=== PATIENT | male | born 1955 | race Caucasian/White ===

== ENCOUNTER → 2017-09-26 13:28 | Outpatient (CLI) | payer OTHER, SELFPAY ==
--- NOTE | 2017-09-26 13:29 | RAD_ITS ---
STUDY: X-RAY - RIGHT SHOULDER REASON FOR EXAM: Male, 62 years old. Right-sided shoulder pain. TECHNIQUE: 3 view(s) of the shoulder. COMPARISON: Prior comparable comparison studies are not available for review at this time. FINDINGS: There is mild degenerative arthrosis of the glenohumeral articulation. Normal acromioclavicular joint. Normal acromion. There is no demonstrated inferior acromial spur. There is demineralization of the humerus and visualized osseous structures. The soft tissue structures are unremarkable. The visualized right lung has mild interstitial thickening. RAD/Shoulder min 2 Views IMPRESSION: Degenerative arthropathy of the right shoulder. Electronically Signed: Sonja Thomson MD at 13:07 EDT , Service support ,
--- NOTE | 2017-09-26 13:29 | RAD_ITS ---
STUDY: X-RAY - CERVICAL SPINE REASON FOR EXAM: Male, 62 years old. Neck pain TECHNIQUE: 6 view(s) of the cervical spine were obtained. COMPARISON: None FINDINGS: Normal anterior atlantoaxial articulation. Normal odontoid process. There is straightening of the normal cervical lordosis. Sclerosed endplates and disc space narrowing C6-7, less C5-6 mild facet sclerosis. There is mild neural foraminal narrowing bilateral C6-7. Otherwise normal vertebral bodies and endplates. Normal disc space heights. Normal visualized intervertebral neuroforamina. The soft tissue structures are unremarkable. RAD/Cerv Spine 4 or 5 Views IMPRESSION: Focal degenerative changes C6-7 with bilateral mild neural foraminal narrowing. There is straightening of the normal lordotic curve, a nonspecific finding, which may be due to positioning or which might be due to muscle spasm. Electronically Signed: Sana Archer MD at 7:57 EDT , Service support ,
== END ==
PROVIDERS: Family Provider Internal Medicine; PCP Internal Medicine; Visit Provider Orthopaedic Surgery
DX: M25.511 Pain in right shoulder (principal); M54.2 Cervicalgia
CPT/HCPCS: 72050; 73030

== ENCOUNTER 2020-08-17 08:16 | Outpatient (RCR) | payer OTHER, SELFPAY ==
[2020-08-17] MEDS: COVID-19 VACC, MRNA(PFIZER)/PF 30 MCG/0.3 ML SYRINGE IM (18:39)
[2020-09-07] MEDS: COVID-19 VACC, MRNA(PFIZER)/PF 30 MCG/0.3 ML SYRINGE IM (17:11)
== END 2020-11-14 23:59 ==
LOC: IMMUN 08:16
PROVIDERS: PCP Family Medicine; Referring Provider Family Medicine; Visit Provider Family Medicine
DX: Z23 Encounter for immunization (principal)
CPT/HCPCS: 0001A; 0002A; 91300

== ENCOUNTER 2023-06-26 07:43 | Inpatient (IN) | payer MEDICARE, SELFPAY ==
[2023-06-26] VITALS (12 sets, daily range): BP systolic 92–127; BP diastolic 58–79; PULSE 101–134; RESP 14–20; TEMP 36.3–39.3; O2SAT 88–98; BMI 30.1; BMI 29.0
[2023-06-26] MEDS: 0.9% Normal Saline (1000mL) 1,000 ML 1000 ML IV (08:37)
[2023-06-26 08:38] LABS: Mucous, Urine 0 SEEN /hpf (<or=2+); Squamous Epithelial Cells - UA 0 SEEN /hpf (0-5)
[2023-06-26] MEDS: Acetaminophen 325 MG Tablet 650 MG PO ×2 (08:38→18:05)
[2023-06-26 08:43] LABS: Glucose, Dipstick Normal (Normal); Ketone-Dipstick 15 mg/dl (Negative); Leukocyte Esterase-Dipstick 500 /ul (Negative); Nitrite-Dipstick Negative (Negative); Occult Blood-Urine 250 /ul (Negative); Protein-Dipstick 30 mg/dl (Negative); Specific Gravity, Urine 1.015 (1.002-1.030); Urine Bilirubin Dipstick Negative (Negative); Urine Urobilinogen Normal (Normal)
[2023-06-26 08:50] LABS: Color, Urine Yellow (Yellow); Urine Clarity Clear (Clear)
[2023-06-26 08:51] LABS: Absolute Lymphocyte Count 2.09 X10^3/uL (0.83-4.51); Absolute Neutrophil Count 24.7 X10^3/uL (2.0-7.7); Basophil# 0.18 X10^3/uL; Basophil% 0.6 % (0-1); Eosinophil# 0.04 X10^3/uL; Eosinophils% 0.1 % (0-5); Hematocrit 44.4 % (40-54); Hemoglobin 14.7 g/dL (13.0-16.5); Lymphocyte # 2.09 X10^3/ul (0.83-4.51); Lymphocyte % 6.7 % (19-41); Mean Corp Hgb Conc 33.1 g/dL (32-36); Mean Corpuscular Hgb 31.9 pg (27.0-32.0); Mean Corpuscular Volume 96.3 fL (80-94); Mean Platelet Vol. 9.2 fl (6.2-12.0); Monocyte# 3.75 X10^3/uL; NRBC Flagged by Analyzer 0 % (0-5); Neutrophil % 79.4 % (47-70); POSITIVE COUNT YES; POSITIVE DIFFERENTIAL YES; Platelet Count 363 K/mm3 (150-450); RBC Distribution Width SD 46.2 fl (35.1-43.9); Red Blood Count 4.61 M/mm3 (4.6-6.2)
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
--- NOTE | 2023-06-26 09:00 | RAD_ITS ---
STUDY: X-RAY - ACUTE ABDOMINAL SERIES REASON FOR EXAM: Male, 67 years old. Fever. Left ureteral stent. TECHNIQUE: Single view of the chest. Supine, and erect view(s) of the abdomen were obtained on 6 images. COMPARISON: None. FINDINGS: The lungs are clear and expanded. Normal size heart. Normal mediastinum and latrice. Normal visualized pulmonary arteries. Normal visualized aortic arch and descending thoracic aorta. Normal bowel gas pattern with air seen to the rectum. Left ureteral stent in anatomic alignment. Clips projected over the left upper quadrant of the abdomen. 5 mm in diameter calcification projected over the lower pole of the right kidney which may represent nephrocalcinosis. Normal visualized osseous structures. RAD/Acute Abdomen Inc Chest IMPRESSION: Left ureteral stent and right nephrocalcinosis. No acute abnormality. Electronically Signed: Kevan Mccormick MD at 9:30 EST ,
--- NOTE | 2023-06-26 09:05 | EDS_ITS ---
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 Patient notes that he had a stent in his left ureter placed 3 weeks ago at [facility] in [facility]. He had a 5.5 mm proximal stone that was obstructing for the patient. He notes about a week later (2 weeks ago) he was at [facility] emergency room and [facility] where he had a fever. They told him he had a raging UTI in the ER and admitted him. He notes his urine culture came back clear. He is been on antibiotics for 2 weeks does not recall the name of them. His fever came back yesterday around 3 PM. Is been as high as 102. Has been taking Advil every 4 hours as last dose was at 6 AM. He took 200 mg. Not had any Tylenol. Notes that he lives in [place] and is scheduled to have his ureteral stent removed in 5 days (07/02) with Dr. Downs at [facility]. Patient does not have his records available from the [place] visits. He does not know what antibiotic he had been on. Is not currently on an antibiotic. [facility] Medical History Back problem Carpal tunnel syndrome h/o thyroid cancer High cholesterol Postoperative primary hypothyroidism Thyroid cancer Home Medications levothyroxine 137 mcg tablet 137 mcg PO DAILY 11/26/16 [History Last Taken 11/28/16 07:00] red yeast rice 600 mg capsule 1,200 mg PO DAILY 11/26/16 [History Last Taken Unknown] levothyroxine 150 mcg tablet 150 mcg PO DAILY 01/30/21 [History Last Taken Unknown] pantoprazole 40 mg tablet,delayed release tablet PO 01/30/21 [History Last Taken Unknown] Allergy/AdvReac Type Severity Reaction Status Date / Time acetaminophen [From Vicodin] AdvReac Nausea/Vom/ Verified 06/26/23 07:45 Diarrhea hydrocodone [From Vicodin] AdvReac Nausea/Vom/ Verified 06/26/23 07:45 Diarrhea Family History Other Bleeding disorder Colon cancer Surgical History h/o carpal tunnel release H/O hernia repair H/O splenectomy H/O thyroidectomy Social History Smoking Status: Never smoker alcohol intake: current alcohol intake frequency: 0-2 drinks per day substance use type: does not use what type of physical activity do you participate in: additional details: cardio EXAM Physical Exam Const Vital Signs: 06/26/23 07:44 06/26/23 08:42 Temperature 97.3 F L 98.6 F Temperature Source Temporal Temporal Pulse Rate 134 H Respiratory Rate 16 Blood Pressure 127/79 H Blood Pressure Mean 95 Pulse Ox 97 Oxygen Delivery Method Room Air [facility] Lab Data Labs: Laboratory Results - last 24 hr 06/26/23 08:30 Urine Color Yellow Urine Clarity Clear Urine pH 6.0 Ur Specific [place] 1.015 Urine Protein 30 H Urine Glucose (UA) Normal Urine Ketones 15 H Urine Occult Blood 250 H Urine Nitrite Negative Urine Bilirubin Negative Urine Urobilinogen Normal Ur Leukocyte Esterase 500 H Discharge Plan Triage Chief Complaint: Fever ED Provider: Marylou Love Dx/Rx/DC Orders Prescriptions: No Action levothyroxine 150 mcg tablet 150 mcg PO DAILY pantoprazole 40 mg tablet,delayed release (DR/EC) PO levothyroxine 137 MCG tablet 137 mcg PO DAILY red yeast rice 600 MG capsule 1,200 mg PO DAILY Primary Care Provider: Lloyd Jameson Referrals: Lloyd Jameson MD [Primary Care Provider] - Capacity Legal Hoist Operator Reflex Medical hold order details:: IF a medical hold is selected below, a suggested order for a MEDICAL HOLD will reflex upon signing the document. Next of kin: [place] law dictates a PRIORITY LIST for identifying legal decision-maker/legal next of kin in the following order (LNOK): 1st: The patient?s legal guardian, if any 2nd: The patient's spouse (if status is questionable, consult Risk Management) 3rd: The patient?s adult child(barbi) (majority, if multiple children) 4th: The patient?s parents 5th: The patient?s adult siblings (majority, if multiple children siblings)
--- NOTE | 2023-06-26 09:05 | EX.ED.DYSGE1 ---
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 Patient notes that he had a stent in his left ureter placed 3 weeks ago at [facility] in [facility]. He had a 5.5 mm proximal stone that was obstructing for the patient. He notes about a week later (2 weeks ago) he was at [facility] emergency room and [facility] where he had a fever. They told him he had a raging UTI in the ER and admitted him. He notes his urine culture came back clear. He is been on antibiotics for 2 weeks does not recall the name of them. His fever came back yesterday around 3 PM. Is been as high as 102. Has been taking Advil every 4 hours as last dose was at 6 AM. He took 200 mg. Not had any Tylenol. Notes that he lives in [place] and is scheduled to have his ureteral stent removed in 5 days (07/02) with Dr. Downs at [facility]. Patient does not have his records available from the [place] visits. He does not know what antibiotic he had been on. Is not currently on an antibiotic. [facility] Medical History Back problem Carpal tunnel syndrome h/o thyroid cancer High cholesterol Kidney stones Postoperative primary hypothyroidism Thyroid cancer Home Medications levothyroxine 175 mcg tablet (Synthroid) 175 mcg PO DAILY THYROID 06/26/23 [History Last Taken 06/25/23] Allergy/AdvReac Type Severity Reaction Status Date / Time acetaminophen [From Vicodin] AdvReac Nausea/Vom/ Verified 06/26/23 07:45 Diarrhea hydrocodone [From Vicodin] AdvReac Nausea/Vom/ Verified 06/26/23 07:45 Diarrhea Family History Other Bleeding disorder Colon cancer Surgical History h/o carpal tunnel release H/O hernia repair H/O splenectomy H/O thyroidectomy Social History Smoking Status: Never smoker alcohol intake: current alcohol intake frequency: 0-2 drinks per day substance use type: does not use what type of physical activity do you participate in: additional details: cardio ROS ROS ED Constitutional Constitutional ED: Reports chills and fever(s) Eyes Eyes: Denies change in vision Cardiovascular Cardiovascular: Denies chest pain Respiratory/Chest Respiratory/Chest: Denies cough Gastrointestinal Gastrointestinal: Denies abdominal pain, nausea or vomiting Genitourinary Genitourinary ED: Denies dysuria, hematuria or urinary frequency Musculoskeletal Musculoskeletal: Denies back pain or myalgias Integumentary Denies rash Neurologic Neurologic: Denies headache(s) Hematologic/Lymphatic Hematologic/Lymphatic: Denies easy bleeding or easy bruising EXAM Physical Exam Const Vital Signs: 06/26/23 07:44 06/26/23 08:42 06/26/23 09:27 Temperature 97.3 F L 98.6 F 99.2 F H Temperature Source Temporal Temporal Oral Pulse Rate 134 H 115 H Respiratory Rate 16 20 H Blood Pressure 127/79 H 106/69 Blood Pressure Mean 95 81 Pulse Ox 97 93 Oxygen Delivery Method Room Air Room Air 06/26/23 09:28 Temperature 99.2 F H Temperature Source Oral Pulse Rate 115 H Respiratory Rate 20 H Blood Pressure 106/69 Blood Pressure Mean 81 Pulse Ox 95 Oxygen Delivery Method Room Air Positive well nourished and well developed General Appearance ED: well developed and NAD HEENT Reports moist mucous membranes Eyes PERRL General Eye ED: Negative for scleral icterus Neck supple Chest Wall inspection of chest normal and palpation of chest normal Resp normal respiratory effort and clear to auscultation bilaterally Cardio no murmurs Rate: tachycardic GI normal to inspection, nondistended, normoactive bowel sounds and non-tender Extremity normal to inspection Neuro oriented x3 Sensorium / Orientation: alert Motor Exam: Negative for general weakness Psych mental status grossly normal Skin no rashes or lesions noted and no wounds MDM MDM MDM Narrative Medical decision making narrative: Patient is evaluated for fever. Started yesterday. Has significant recent past medical history of kidney stone that required stent. This was all [place] out of state. He had a hospitalization about 2 weeks ago for fever thought to be secondary to infected stent/pyelonephritis however he states his urine culture was negative at that time. He has no other symptoms otherwise quite well-appearing. Today his white count is significantly elevated at 31.1 (his CBC in December of last year (6 months ago) was normal). Kidney function does appear to be at his baseline creatinine 1.36 where his baseline is 1.1-1.2. Is given IV fluids and Tylenol in the ER with improvement of his tachycardia. Otherwise remains hemodynamically stable. Urinalysis is consistent with infection with 500 leukocyte esterase, 10-25 white blood cells 1+ bacteria with no squamous cells. Initially KUB is obtained which shows left stent and calcifications in the right kidney. Is reviewed by myself as well as radiology. Single chest view on this is normal with no acute infiltrate noted. Case discussed with urology on-call, Dr. Crouch, states the patient likely needs IV antibiotics and he would not take the stent out right now given acute infection but does recommend admission to medicine. Case discussed admitting physician, Dr. Mcfarland, who admit the patient to his service. Patient started on IV Zosyn as patient was contacted on the emergency room by his urologist who states that his urine culture was positive for Enterococcus faecalis (he saw his urologist 2 days ago). Will try to obtain urine culture results however I do not see this on [facility]. Patient agreeable to plan of care. CT of the flank is ordered per request of urology and this is read as prominent left kidney with mild perinephric standing which can be seen in pyelonephritis with no other acute process. Stent appears to be appropriately placed. Lactate was normal so patient does not have markers for severe sepsis or endorgan damage at this time. Blood cultures are pending as well as urine culture at this time. History & Record Review Additional record(s) reviewed:: Prior outpatient record ([facility]- urology visit ) Lab Data Attestation: I reviewed the patient's lab results. Labs: Laboratory Results - last 24 hr 06/26/23 06/26/23 08:25 08:30 WBC 31.1 H* RBC 4.61 Hgb 14.7 Hct 44.4 MCV 96.3 H MCH 31.9 MCHC 33.1 RDW Std Deviation 46.2 H RDW Coeff of Lam 13.0 Plt Count 363 MPV 9.2 Immature Gran % (Auto) 1.200 H Neut % (Auto) 79.4 H Lymph % (Auto) 6.7 L [place] % (Auto) 12.0 H Eos % (Auto) 0.1 Baso % (Auto) 0.6 Absolute Neuts (auto) 24.7 H Absolute Lymphs (auto) 2.09 Nucleated RBC % 0 Differential Comment SCANNED Diff Path Review October Sodium 135 L Potassium 3.9 Chloride 102 Carbon Dioxide 27.0 Anion Gap 6 BUN 19 H Creatinine 1.38 H Estim Creat Clear Calc 58.10 Est GFR (MDRD) Af Amer 66 Est GFR (MDRD) Non-Af 55 L BUN/Creatinine Ratio 13.8 Glucose 112 H Lactic Acid 1.5 Calcium 9.8 Total Bilirubin 1.10 H AST 14 L ALT 24 Alkaline Phosphatase 90 Total Protein 8.3 H Albumin 3.6 Globulin 4.7 H Albumin/Globulin Ratio 0.8 L Procalcitonin 0.40 H Urine Color Yellow Urine Clarity Clear Urine pH 6.0 Ur Specific [place] 1.015 Urine Protein 30 H Urine Glucose (UA) Normal Urine Ketones 15 H Urine Occult Blood 250 H Urine Nitrite Negative Urine Bilirubin Negative Urine Urobilinogen Normal Ur Leukocyte Esterase 500 H Urine RBC 5-10 SEEN Urine WBC 10-25 SEEN Ur Squamous Epith Cells 0 SEEN Urine Bacteria 1+ Urine Mucus 0 SEEN Radiography Diagnostic Testing: Clinical Impression(s) from Imaging Studies Acute Abdomen Series 06/26/23 09:00 IMPRESSION: Left ureteral stent and right nephrocalcinosis. No acute abnormality. Electronically Signed: Kevan Mccormick MD at 9:30 EST , Abdomen/Pelvis CT 06/26/23 09:48 IMPRESSION: 1. Left double-J stent catheter in place. 2. Prominent left kidney with mild perinephric stranding which can be seen in pyelonephritis. 3. Small nonobstructing stone in the right kidney. 4. Status post splenectomy. 5. Otherwise no focal acute inflammatory process. 6. Prominent prostate. 7. Very small bilateral inguinal hernias containing fat. Electronically Signed: Gamal Vicente MD at 10:27 EST , Management Discussion w/another healthcare provider: Hospitalist and Sales And Service Engineer Discharge Plan Dx/Rx/DC Orders Clinical Impression: Status post placement of ureteral stent, Pyelonephritis of left kidney, Leukocytosis Disposition Disposition: [facility] Discharge Date/Time: 06/26/23 10:35 Capacity Legal Amortization Schedule Clerk Reflex Medical hold order details:: IF a medical hold is selected below, a suggested order for a MEDICAL HOLD will reflex upon signing the document. Next of kin: [place] law dictates a PRIORITY LIST for identifying legal decision-maker/legal next of kin in the following order (LNOK): 1st: The patient?s legal guardian, if any 2nd: The patient's spouse (if status is questionable, consult Risk Management) 3rd: The patient?s adult child(barbi) (majority, if multiple children) 4th: The patient?s parents 5th: The patient?s adult siblings (majority, if multiple children siblings)
[2023-06-26 09:07] LABS: ALB/GLOB Ratio 0.8 RATIO (0.9-2.4); AST(SGOT) 14 U/L (15-37); Alanine Aminotransfer ALT/SGPT 24 U/L (16-61); Albumin, Serum 3.6 g/dL (3.2-5.0); Alkaline Phosphatase 90 U/L (45-117); Anion Gap 6 (5-15); BUN 19 mg/dL (7-18); BUN/Creat Ratio 13.8 RATIO (10-20); Calcium,Total 9.8 mg/dL (8.5-10.1); Chloride 102 mmol/L (98-107); Creatinine, Serum 1.38 mg/dL (0.70-1.30); EST Glomerular Filtration Rate 55 mL/min (>60); Est Glom Filt Rate - Afr Amer 66 mL/min (>60); Globulin 4.7 g/dL (2.2-4.2); Glucose 112 mg/dL (74-106); Potassium 3.9 mmol/L (3.5-5.1); Protein, Total 8.3 g/dL (6.4-8.2); Sodium Level 135 mmol/L (136-145)
[2023-06-26 09:11] LABS: Lactic Acid 1.5 mmol/L (0.4-1.9)
[2023-06-26 09:12] LABS: Differential Indicated SCAN CRITERIA MET; White Blood Count 31.1 K/mm3 (4.4-11.0)
[2023-06-26 09:13] LABS: Differential Comment SCANNED
[2023-06-26 09:28] LABS: Bacteria 1+ /hpf (None Seen); Red Blood Cells-Urine 5-10 SEEN /hpf (0-5); White Blood Cells 10-25 SEEN /hpf (0-5)
--- NOTE | 2023-06-26 09:48 | CT_ITS ---
INDICATION: fever, left stent- ureter EXAMINATION: CT ABDOMEN AND PELVIS WITHOUT CONTRAST - CT Abdomen And Pelvis W/O Contrast Injection TECHNIQUE: Helically acquired images were obtained of the abdomen and pelvis without oral or IV contrast. A radiation dose optimization technique was used for this scan. IV Contrast dosage and agent: None. Oral contrast: None. RADIATION DOSAGE (If Supplied By Facility): CTDIvol = ( 10.01 ) mGy, DLP = ( 524.96 ) mGycm COMPARISON: No relevant prior comparison study available FINDINGS: LOWER CHEST: Lung bases are clear. No cardiomegaly or pericardial effusion. LIVER: Homogeneous. No focal mass. GALLBLADDER AND BILIARY TREE: No calcified gallstones. No gallbladder distension or wall edema. No intra- or extrahepatic biliary ductal dilation. PANCREAS: No focal cystic or solid mass. SPLEEN: Surgically removed. ADRENAL GLANDS: No nodules. KIDNEYS AND URETERS: 4 mm nonobstructing stone in the lower pole of the right kidney. No evidence of right hydronephrosis. Left sided double-J stent catheter with the proximal tip in the upper pole calyx of the left kidney and the distal tip extends to the bladder close to the ureterovesical junction. No definite ureteral stone. Mild prominence of the left kidney with perinephric stranding without definite hydronephrosis. Can be seen in pyelonephritis. There are 2 left renal veins with one of the veins passing behind aorta and inferior vena cava. PERITONEUM: No ascites or free air. No other fluid collection. BOWEL: No evidence of acute appendicitis. No stomach or bowel distension. No focal inflammatory change. LYMPH NODES: No enlarged mesenteric or retroperitoneal lymph nodes. VESSELS: Aorta is non-dilated. URINARY BLADDER: Unremarkable. REPRODUCTIVE ORGANS: Slightly prominent prostate. ABDOMINAL WALL: Tiny bilateral inguinal hernia containing fat . BONES: No lytic or blastic abnormality. CT/Abdomen/Pelvis without Cont IMPRESSION: 1. Left double-J stent catheter in place. 2. Prominent left kidney with mild perinephric stranding which can be seen in pyelonephritis. 3. Small nonobstructing stone in the right kidney. 4. Status post splenectomy. 5. Otherwise no focal acute inflammatory process. 6. Prominent prostate. 7. Very small bilateral inguinal hernias containing fat. Electronically Signed: Gamal Vicente MD at 10:27 EST ,
[2023-06-26] MEDS: Piperacil/Tazobactam 4.5 GM in 0.9% Normal Saline (100mL MB+) 100 ML IV (11:03)
[2023-06-26] MEDS: 0.9% Normal Saline (1000mL) 1,000 ML 150 ML IV ×2 (11:42→18:10)
[2023-06-26] MEDS: Ibuprofen 400 MG Tablet PO ×2 (12:57→21:39)
[2023-06-26] MEDS: Ondansetron 4 MG/2 ML Vial IV (13:00)
[2023-06-26] MEDS: Piperacil/Tazobactam 3.375 GM in 0.9% Normal Saline (50mL MB+) 50 ML IV ×2 (14:58→21:40)
[2023-06-26] MEDS: 0.9% Normal Saline (250mL Bag) 250 ML 15 ML IV (14:58)
--- NOTE | 2023-06-26 17:33 | PCM.HP.STD ---
HPI - General General Date of Admission: 06/26/23 Date of Service: 06/26/23 Chief Complaint: Fever, chills HPI Narrative JAYLENE VEE, is a 67 M who presents to the emergency room with a suspected urinary tract infection, he had been treated in the hospital in [facility] 3 times over the past several weeks for left flank pain, initially he was told that he had a ureteral stone but that it was small enough to pass, he then went to another hospital a few days later because he had continued pain, he was told that he needed a stent placed in the left ureter, approximately a week after this, he was hospitalized at another [place] hospital for a UTI and was placed on outpatient antibiotics. Patient has a appointment to follow-up with urology at the [facility] on Friday to have his left ureteral stone undergo laser lithotripsy. Last night he had the onset of chills and fever at home-he says his fever was up to 102, workup in the emergency room today showed a highly elevated white blood cell count at 31.1, chemistry panel showed a creatinine of 1.38 and a BUN of 19, patient's urinalysis showed 500 leukocyte Estrace, 10-25 WBCs, 5-10 RBCs, and +1 bacteria. Patient had a recent outpatient urine culture which grew out Enterococcus. Patient will be admitted to [place] [address] for acute pyelonephritis, he will be placed on IV Zosyn and receive IV fluids, I talked to the patient about seeing urology here but the patient would rather follow-up with [facility] urology on Friday. Patient does not meet criteria for sepsis at this time. [facility] Medical History Back problem Carpal tunnel syndrome h/o thyroid cancer High cholesterol Kidney stones Postoperative primary hypothyroidism Thyroid cancer Home Medications levothyroxine 175 mcg tablet (Synthroid) 175 mcg PO DAILY THYROID 06/26/23 [History Last Taken 06/25/23] Allergy/AdvReac Type Severity Reaction Status Date / Time acetaminophen [From Vicodin] AdvReac Nausea/Vom/ Verified 06/26/23 07:45 Diarrhea hydrocodone [From Vicodin] AdvReac Nausea/Vom/ Verified 06/26/23 07:45 Diarrhea Family History Other Bleeding disorder Colon cancer Surgical History h/o carpal tunnel release H/O hernia repair H/O splenectomy H/O thyroidectomy Social History Smoking Status: Never smoker alcohol intake: current alcohol intake frequency: 0-2 drinks per day substance use type: does not use what type of physical activity do you participate in: additional details: cardio ROS Constitutional Constitutional: Reports chills and fever(s); Denies anorexia, change in weight, night sweats or weakness Eyes Eyes: Denies blurry vision, change in vision, discharge from eye(s) or eye pain Cardiovascular Cardiovascular: Denies chest pain, claudication, dyspnea on exertion, edema or palpitations Respiratory/Chest Respiratory/Chest: Denies cough, dyspnea, hemoptysis, productive cough, shortness of breath at rest or shortness of breath with exertion Gastrointestinal Gastrointestinal: Denies abdominal pain, constipation, diarrhea, hematemesis, hematochezia, melena, nausea or vomiting Genitourinary Genitourinary: Denies dysuria, hematuria, urinary frequency, urinary hesitancy, urinary incontinence or urinary urgency Musculoskeletal Musculoskeletal: Denies back pain, joint pain, joint stiffness, joint swelling, myalgias or neck pain Neurologic Neurologic: Denies abnormal gait, abnormal speech, dizziness, focal weakness, headache(s), loss of vision, numbness, other visual disturbances, paresthesias, syncope or tingling Psychiatric Psychiatric: Denies anxiety, cognitive impairment, depression, irritability, mood swings or suicidal ideation Endocrine Endocrinology: Denies change in body appearance, cold intolerance, excessive sweating, heat intolerance, polydipsia or polyuria Hematologic/Lymphatic Hematologic/Lymphatic: Denies none, anemia, easy bleeding, easy bruising or lymphadenopathy Allergic/Immunologic Allergic/Immunologic: Denies rhinitis, urticaria, eczemia or asthma Vital Signs Vital Signs Vital Signs: 06/26/23 07:44 06/26/23 08:42 06/26/23 09:27 Temperature 97.3 F L 98.6 F 99.2 F H Temperature Source Temporal Temporal Oral Pulse Rate 134 H 115 H Respiratory Rate 16 20 H Blood Pressure 127/79 H 106/69 Blood Pressure Mean 95 81 Blood Pressure Source Blood Pressure Position Blood Pressure Location Pulse Ox 97 93 Oxygen Delivery Method Room Air Room Air 06/26/23 09:28 06/26/23 10:23 06/26/23 10:46 Temperature 99.2 F H 99 F 98.4 F Temperature Source Oral Temporal Pulse Rate 115 H 106 H 106 H Respiratory Rate 20 H 14 18 Blood Pressure 106/69 110/61 120/76 Blood Pressure Mean 81 77 90 Blood Pressure Source Monitor Blood Pressure Position Semi-Fowlers Blood Pressure Location Right Arm Pulse Ox 95 96 95 Oxygen Delivery Method Room Air Room Air 06/26/23 12:43 Temperature 101.3 F H Temperature Source Oral Pulse Rate Respiratory Rate Blood Pressure Blood Pressure Mean Blood Pressure Source Blood Pressure Position Blood Pressure Location Pulse Ox Oxygen Delivery Method Weight Weight: 86.545 kg Body Mass Index (BMI) 29.0 Results Lab / Micro Data 06/26/23 08:25 06/26/23 08:25 Labs: Laboratory Results - last 24 hr 06/26/23 08:25: WBC 31.1 H*, RBC 4.61, Hgb 14.7, Hct 44.4, MCV 96.3 H, MCH 31.9, MCHC 33.1, RDW Std Deviation 46.2 H, RDW Coeff of Lam 13.0, Plt Count 363, MPV 9.2, Immature Gran % (Auto) 1.200 H, Neut % (Auto) 79.4 H, Lymph % (Auto) 6.7 L, [place] % (Auto) 12.0 H, Eos % (Auto) 0.1, Baso % (Auto) 0.6, Absolute Neuts (auto) 24.7 H, Absolute Lymphs (auto) 2.09, Nucleated RBC % 0, Differential Comment SCANNED, Diff Path Review October, Sodium 135 L, Potassium 3.9, Chloride 102, Carbon Dioxide 27.0, Anion Gap 6, BUN 19 H, Creatinine 1.38 H, Estim Creat Clear Calc 58.10, Est GFR (MDRD) Af Amer 66, Est GFR (MDRD) Non-Af 55 L, BUN/Creatinine Ratio 13.8, Glucose 112 H, Lactic Acid 1.5, Calcium 9.8, Total Bilirubin 1.10 H, AST 14 L, ALT 24, Alkaline Phosphatase 90, Total Protein 8.3 H, Albumin 3.6, Globulin 4.7 H, Albumin/Globulin Ratio 0.8 L, Procalcitonin 0.40 H 06/26/23 08:30: Urine Color Yellow, Urine Clarity Clear, Urine pH 6.0, Ur Specific [place] 1.015, Urine Protein 30 H, Urine Glucose (UA) Normal, Urine Ketones 15 H, Urine Occult Blood 250 H, Urine Nitrite Negative, Urine Bilirubin Negative, Urine Urobilinogen Normal, Ur Leukocyte Esterase 500 H, Urine RBC 5-10 SEEN, Urine WBC 10-25 SEEN, Ur Squamous Epith Cells 0 SEEN, Urine Bacteria 1+, Urine Mucus 0 SEEN Micro: Microbiology 06/26/23 08:30 Mucosa - Nose SARS-CoV-2, Influenza & RSV (PCR) - Final Imagaing Radiology Impression Acute Abdomen Series 06/26/23 09:00 IMPRESSION: Left ureteral stent and right nephrocalcinosis. No acute abnormality. Electronically Signed: Kevan Mccormick MD at 9:30 EST , Abdomen/Pelvis CT 06/26/23 09:48 IMPRESSION: 1. Left double-J stent catheter in place. 2. Prominent left kidney with mild perinephric stranding which can be seen in pyelonephritis. 3. Small nonobstructing stone in the right kidney. 4. Status post splenectomy. 5. Otherwise no focal acute inflammatory process. 6. Prominent prostate. 7. Very small bilateral inguinal hernias containing fat. Electronically Signed: Gamal Vicente MD at 10:27 EST , Assessment & Plan Assessment/Plan (1) Pyelonephritis of left kidney: PLAN: Plan 1. Left pyelonephritis-patient will be admitted to [facility] 3 and placed on IV Zosyn and IV fluids, I do not feel that the patient needs urology consultation at this time. #2 hypothyroidism secondary to thyroidectomy for thyroid cancer-patient will remain on his thyroid medication Total clinical time spent by myself addressing patient's medical issues, reviewing all of his data, and collaborating with patient's care team: 55 minutes Charges/Coding Visit Charges Inpatient E&M: 02045 Init Hosp L2
[2023-06-26] MEDS: Temazepam 15 MG Capsule PO (21:39)
[2023-06-27] MEDS: 0.9% Normal Saline (1000mL) 1,000 ML 150 ML IV ×3 (00:38→16:36)
[2023-06-27 05:00] VITALS: BP 96/61; PULSE 83; RESP 16; TEMP 36.8; O2SAT 96
[2023-06-27] MEDS: Levothyroxine 175 MCG Tablet PO (05:12)
[2023-06-27] MEDS: Piperacil/Tazobactam 3.375 GM in 0.9% Normal Saline (50mL MB+) 50 ML IV ×3 (05:12→21:33)
[2023-06-27] MEDS: 0.9% Saline Lock 10 ML Syringe IV (05:13)
[2023-06-27 06:23] LABS: Absolute Lymphocyte Count 3.05 X10^3/uL (0.83-4.51); Absolute Neutrophil Count 28.1 X10^3/uL (2.0-7.7); Basophil# 0.16 X10^3/uL; Basophil% 0.4 % (0-1); Eosinophil# 0.01 X10^3/uL; Hematocrit 34.2 % (40-54); Lymphocyte # 3.05 X10^3/ul (0.83-4.51); Lymphocyte % 8.3 % (19-41); Mean Corp Hgb Conc 32.2 g/dL (32-36); Mean Corpuscular Hgb 31.3 pg (27.0-32.0); Mean Corpuscular Volume 97.2 fL (80-94); Mean Platelet Vol. 9.5 fl (6.2-12.0); Monocyte# 3.97 X10^3/uL; Monocyte% 10.9 % (0-10); NRBC Flagged by Analyzer 0 % (0-5); Neutrophil # 28.08 X10^3/uL (2.7-7.7); Neutrophil % 76.9 % (47-70); POSITIVE COUNT YES; POSITIVE DIFFERENTIAL YES; POSITIVE MORPHOLOGY YES; Platelet Count 285 K/mm3 (150-450); RBC Distribution Width CV 13.2 % (11.6-14.6); RBC Distribution Width SD 47.1 fl (35.1-43.9); Red Blood Count 3.52 M/mm3 (4.6-6.2)
[2023-06-27 06:31] LABS: Differential Indicated SCAN CRITERIA MET; White Blood Count 36.6 K/mm3 (4.4-11.0)
[2023-06-27 08:27] VITALS: BP 91/72; PULSE 96; RESP 16; TEMP 36.7; O2SAT 98
[2023-06-27] MEDS: levoFLOXacin IV 750 MG/150 ML BAG 100 MG IV (09:43)
[2023-06-27] MEDS: Meloxicam 15 MG Tablet PO (09:46)
[2023-06-27] MEDS: Pantoprazole Sodium 40 MG Tablet PO (09:46)
--- NOTE | 2023-06-27 11:45 | CASEMGMT ---
RN?CM?PRESSURE TANK OPERATOR?CM?to room to meet with patient for initial transition planning/care coordination?assessment.?RN?CM?introduced self and role at [facility].? Pt voices understanding and consents to?assessment?at this time.? Pt resting in bed in no distress at this time.? Pt is A/O at this time and answers all questions appropriately.?? Care providers, pharmacy, and demographics verified/updated at this time. PCP: Dr Jameson Specialists:Dr Sung--urology/surgeon @ [facility]. Pt asks if [facility] medical records could be sent to him. MS3 RN CHELSY, Trupti, made aware of his request. Pt states lithotripsy has been re-scheduled for 07/09. Preferred Pharmacy: [facility] in [place]. [facility] @ discharge. Insurance: MMO Prescription Benefit:?Pt states he is pretty sure he has Rx benefits. Living Will/HPOA:?Pt has both LW and HCPOA, who is his , Michelle LNOK: , Michelle Living Arrangements: lives w/his in 2-story home w/2 steps to enter. Denies difficulty w/stairs. Independent w/ADL's and manages his own medications. and pt share home mgnt tasks. Transportation:?Pt states drives self and states no transportation concerns at this time.? also drives. DME: ? Denies using any DME and denies needs.? HHC/SNF: No hx of either, pt denies needs, and no needs identified. Pt wishes to return home and states has no concerns with going home at time of discharge.? CM?to follow for any further discharge planning/needs.? Pt voices no further concerns/needs at this time.? Advised pt to ask for?CM?if any further questions/concerns/needs arise.? Voices understanding. PLAN:??Home Ifeoma BSN?RN?CM
--- NOTE | 2023-06-27 12:41 | CASEMGMT ---
Social Work SW confirmed w/pt that his is healthcare POA. He is not able to bring in the documents nor is his as she is out of town. MANE Quick
[2023-06-27 13:52] VITALS: BP 99/62; PULSE 105; RESP 16; TEMP 39.4; O2SAT 94
[2023-06-27] MEDS: Acetaminophen 325 MG Tablet 650 MG PO ×2 (14:01→21:28)
[2023-06-27 14:57] LABS: Pathologist Review Reviewed
[2023-06-27 15:27] VITALS: TEMP 38.8
[2023-06-27 16:38] VITALS: BP 91/61; PULSE 96; RESP 16; TEMP 37.2; O2SAT 96
--- NOTE | 2023-06-27 18:27 | PN.HOSP_ITS ---
Reason for Visit Reason for Visit: Diagnoses Tubulo-interstitial nephritis, not specified as acute or chronic (06/26/23) Subjective Subjective Patient was seen and examined today, his white count bumped up today, he was placed on Levaquin overnight but I do not think this is an appropriate antibiotic for Enterococcus. I have elected to keep the patient on Zosyn for now, he does not appear toxic, he did he did spike a temperature today, one of his urine cultures grew out strep which should be covered by Zosyn. Patient's CT in the emergency room did not show the presence of a left ureteral stone, I talked to the patient about this, I also talked briefly with urology here about it. Patient was telling nursing that he wanted to see the urologist for removal of the stent, there is no urology coverage this weekend and I think it is better to continue the patient on antibiotics and have him follow-up as an outpatient for repeat retrograde cystoscopy/pyelogram. Again he is due to see the urologist as an outpatient on Friday of this coming week. Objective Data Objective Data Vital Signs: Vital Signs Temp Pulse Resp BP Pulse Ox O2 Del Method O2 Flow Rate 98.9 F 96 16 91/61 96 Room Air 2 06/27/23 16:38 06/27/23 16:38 06/27/23 16:38 06/27/23 16:38 06/27/23 16:38 06/27/23 16:38 06/26/23 22:53 Oxygen Flow Rate (L/min) 2 Oxygen Delivery Method Room Air Weight: 86.545 kg Body Mass Index (BMI) 29.0 Intake & Output: Intake and Output for Last 24 Hours 06/25/23 06/26/23 06/27/23 23:59 23:59 23:59 Intake Total 2961.5 / 2961.5 3230.5 / 3230.5 Output Total 900 / 900 Balance 2061.5 / 2061.5 3230.5 / 3230.5 Lab / Micro Data 06/27/23 05:24 06/26/23 08:25 Labs: Laboratory Results - last 24 hr 06/26/23 08:25: Diff Path Review Reviewed 06/27/23 05:24: WBC 36.6 H*, RBC 3.52 L, Hgb 11.0 L, Hct 34.2 L, MCV 97.2 H, MCH 31.3, MCHC 32.2, RDW Std Deviation 47.1 H, RDW Coeff of Lam 13.2, Plt Count 285, MPV 9.5, Immature Gran % (Auto) 3.500 H, Neut % (Auto) 76.9 H, Lymph % (Auto) 8.3 L, [place] % (Auto) 10.9 H, Eos % (Auto) 0.0, Baso % (Auto) 0.4, Absolute Neuts (auto) 28.1 H, Absolute Lymphs (auto) 3.05, Nucleated RBC % 0, Diff Path Review October Micro: Microbiology 06/27/23 17:30 Nasal Secretion SARS-CoV-2 Antigen (Rapid) - Final 06/26/23 08:30 Urine, Clean Catch Urine Culture - Preliminary Beta streptococcus 06/26/23 08:30 Mucosa - Nose SARS-CoV-2, Influenza & RSV (PCR) - Final Physical Exam Const alert, oriented x3, no apparent distress, average body habitus and healthy appearing General Appearance: cooperative, well kempt and well developed Orientation / Consciousness: awake, oriented to person, oriented to place and oriented to time HEENT normocephalic, head/scalp atraumatic and moist oral mucous membranes Eyes PERRL, EOMs intact bilaterally and conjunctivae normal Neck supple, no JVD, thyroid normal and no carotid bruits General: trachea midline Resp normal respiratory effort, no retractions, no use of accessory muscles and clear to auscultation bilaterally Auscultation: Negative for rales, rhonchi or wheezes Cardio regular rate, regular rhythm, S1 normal heart sound, S2 normal heart sound, no murmurs, no rub and no gallops GI normal to inspection, nondistended, normoactive bowel sounds, soft to palpation, non-tender and non-distended Extremity no clubbing, cyanosis or edema Skin no rashes or lesions noted General Skin Exam: no breakdown Neuro oriented x3, CN's II-XII intact bilaterally, moves all extremities, no focal motor deficits and no sensory deficits noted Sensorium / Orientation: awake and alert Speech: speech normal Psych affect normal Assessment & Plan Assessment/Plan (1) Pyelonephritis of left kidney: PLAN: Plan 1. Left pyelonephritis due to Enterococcus-patient will continue on IV Zosyn and IV fluids, labs will be obtained tomorrow, I performed another COVID antigen test on the patient to make sure he does not have COVID. Urine culture here grew out beta Streptococcus which should be sensitive to Zosyn-however there were only small numbers of beta strep. #2 hypothyroidism secondary to thyroidectomy for thyroid cancer-patient will remain on his thyroid medication Total clinical time spent by myself addressing patient's medical issues, reviewing all of his data, and collaborating with patient's care team: 35 minutes Charges/Coding Visit Charges Inpatient E&M: 45110 Subs Hosp L2
[2023-06-27] MEDS: Heparin Injection (Vial) 5,000 UNIT/ML VIAL 5000 UNIT SC (21:33)
[2023-06-27 22:00] VITALS: BP 114/65; PULSE 110; RESP 16; TEMP 37.6; O2SAT 93
[2023-06-28] VITALS: TEMP 37.6
[2023-06-28] MEDS: 0.9% Normal Saline (1000mL) 1,000 ML 150 ML IV (00:04)
[2023-06-28] MEDS: Temazepam 15 MG Capsule PO ×2 (00:09→23:43)
[2023-06-28] MEDS: Ibuprofen 400 MG Tablet PO ×3 (00:09→18:18)
[2023-06-28] MEDS: Acetaminophen 325 MG Tablet 650 MG PO ×2 (03:35→10:42)
[2023-06-28 04:05] VITALS: BP 94/61; PULSE 75; RESP 16; TEMP 36.4; O2SAT 97
[2023-06-28 06:06] LABS: Absolute Lymphocyte Count 3.89 X10^3/uL (0.83-4.51); Absolute Neutrophil Count 15.1 X10^3/uL (2.0-7.7); Basophil% 0.4 % (0-1); Eosinophil# 0.15 X10^3/uL; Eosinophils% 0.7 % (0-5); Hemoglobin 10.5 g/dL (13.0-16.5); Lymphocyte # 3.89 X10^3/ul (0.83-4.51); Mean Corp Hgb Conc 31.8 g/dL (32-36); Mean Corpuscular Hgb 30.8 pg (27.0-32.0); Mean Corpuscular Volume 96.8 fL (80-94); Mean Platelet Vol. 9.4 fl (6.2-12.0); Monocyte# 3.28 X10^3/uL; Monocyte% 14.3 % (0-10); NRBC Flagged by Analyzer 0 % (0-5); Neutrophil # 15.14 X10^3/uL (2.7-7.7); Neutrophil % 66.2 % (47-70); POSITIVE DIFFERENTIAL YES; Platelet Count 273 K/mm3 (150-450); RBC Distribution Width CV 13.3 % (11.6-14.6); Red Blood Count 3.41 M/mm3 (4.6-6.2); White Blood Count 22.9 K/mm3 (4.4-11.0)
[2023-06-28 06:14] LABS: Differential Indicated SCAN CRITERIA MET
[2023-06-28 06:33] LABS: Differential Comment SCANNED
[2023-06-28 06:42] LABS: Anion Gap 5 (5-15); BUN 13 mg/dL (7-18); BUN/Creat Ratio 10.1 RATIO (10-20); Calcium,Total 8.3 mg/dL (8.5-10.1); Chloride 112 mmol/L (98-107); Creatinine, Serum 1.29 mg/dL (0.70-1.30); EST Glomerular Filtration Rate 59 mL/min (>60); Est Glom Filt Rate - Afr Amer 72 mL/min (>60); Estimated Creatinine Clearance 61.09 ml/min; Glucose 94 mg/dL (74-106); Potassium 3.7 mmol/L (3.5-5.1); Sodium Level 141 mmol/L (136-145)
[2023-06-28] MEDS: Levothyroxine 175 MCG Tablet PO (07:14)
[2023-06-28] MEDS: Piperacil/Tazobactam 3.375 GM in 0.9% Normal Saline (50mL MB+) 50 ML IV (07:14)
[2023-06-28] MEDS: 0.9% Normal Saline (1000mL) 1,000 ML 125 ML IV ×3 (07:23→23:43)
--- NOTE | 2023-06-28 09:03 | CON.PCM.UR_ITS ---
Assessment & Plan Assessment/Plan (1) Pyelonephritis of left kidney: (2) Status post placement of ureteral stent: (3) Leukocytosis: HPI Consult Data Date of Consult: 06/28/23 HPI Narrative Reason for Consultation: Left kidney stone status post stent outside hospital HPI Narrative: JAYLENE VEE, is a 67 M who presents to [facility] with infection and apparently had a stone at an outside hospital and had a stent placed. When he came in CT scan was done demonstrated the stent in appropriate position also had a KUB done but the KUB and the CT scan I do not see a stone in the left side at this point. He does have a 4 mm stone nonobstructive in the right kidney. When he came in he had Enterococcus infection sensitivities pending white count is extremely high and came in with pyelonephritis of the left kidney. At this point he wishes to have the stent removed however with the current infection I do not think it safe to remove it until this infection is cleared and treated sufficiently. He can follow-up in my office this coming for possible cystoscopy stent removal. He can call the office on Friday and get an appointment I will let the office know. [facility] Medical History Back problem Carpal tunnel syndrome h/o thyroid cancer High cholesterol Kidney stones Postoperative primary hypothyroidism Thyroid cancer Home Medications levothyroxine 175 mcg tablet (Synthroid) 175 mcg PO DAILY THYROID 06/26/23 [History Last Taken 06/25/23] Allergy/AdvReac Type Severity Reaction Status Date / Time acetaminophen [From Vicodin] AdvReac Nausea/Vom/ Verified 06/26/23 07:45 Diarrhea hydrocodone [From Vicodin] AdvReac Nausea/Vom/ Verified 06/26/23 07:45 Diarrhea Family History Other Bleeding disorder Colon cancer Surgical History h/o carpal tunnel release H/O hernia repair H/O splenectomy H/O thyroidectomy Social History Smoking Status: Never smoker alcohol intake: current alcohol intake frequency: 0-2 drinks per day substance use type: does not use what type of physical activity do you participate in: additional details: cardio ROS Constitutional Constitutional: Denies chills, fever(s) or malaise Eyes Eyes: Denies blurry vision or change in vision ENT HEENT: Reports none Cardiovascular Cardiovascular: Denies chest pain or palpitations Respiratory/Chest Respiratory/Chest: Denies cough or shortness of breath with exertion Gastrointestinal Gastrointestinal: Denies abdominal pain, constipation or diarrhea Musculoskeletal Musculoskeletal: Denies back pain, joint stiffness or joint swelling Integumentary Integumentary: Denies dry skin, jaundice, lesions or rash Neurologic Neurologic: Denies confusion, syncope or weakness Psychiatric Psychiatric: Reports none; Denies anxiety or depression Endocrine Endocrinology: Denies excessive sweating, fatigue or flushing Hematologic/Lymphatic Hematologic/Lymphatic: Denies anemia, easy bleeding or easy bruising Physical Exam Const alert and oriented x3 General Appearance: cooperative HEENT normocephalic, head/scalp atraumatic, EAC's normal and TM's normal bilaterally Eyes PERRL and EOMs intact bilaterally Pupil: sluggish Neck no lymphadenopathy, supple and no JVD General: trachea midline Lymph Lymphatic: no lymphadenopathy noted, lymphedema and lymphadenopathy Resp normal respiratory effort, normal air movement and clear to auscultation bilaterally Cardio regular rate, regular rhythm and peripheral pulses 2+ throughout GI soft to palpation, non-tender and non-distended Extremity normal capillary refill and no clubbing, cyanosis or edema General Extremity: no tenderness to palpation of joints or extremities Skin no rashes or lesions noted General Skin Exam: turgor normal Lesions: no lesions Rashes: no rashes Neuro CN's II-XII intact bilaterally Speech: speech normal Motor Exam: strength 5/5 throughout; Negative for general weakness Psych thought process normal, cooperative and affect normal Appearance: appropriate Medical Records Data Attestation: I reviewed the patient's medical records Lab / Micro Data 06/28/23 05:13 06/28/23 05:13 Labs: Laboratory Results - last 24 hr 06/26/23 08:25: Diff Path Review Reviewed 06/28/23 05:13: WBC 22.9 H, RBC 3.41 L, Hgb 10.5 L, Hct 33.0 L, MCV 96.8 H, MCH 30.8, MCHC 31.8 L, RDW Std Deviation 48.0 H, RDW Coeff of Lam 13.3, Plt Count 273, MPV 9.4, Immature Gran % (Auto) 1.400 H, Neut % (Auto) 66.2, Lymph % (Auto) 17.0 L, [place] % (Auto) 14.3 H, Eos % (Auto) 0.7, Baso % (Auto) 0.4, Absolute Neuts (auto) 15.1 H, Absolute Lymphs (auto) 3.89, Nucleated RBC % 0, Differential Comment SCANNED, Diff Path Review October, Sodium 141, Potassium 3.7, Chloride 112 H, Carbon Dioxide 24.0, Anion Gap 5, BUN 13, Creatinine 1.29, Estim Creat Clear Calc 61.09, Est GFR (MDRD) Af Amer 72, Est GFR (MDRD) Non-Af 59 L, BUN/Creatinine Ratio 10.1, Glucose 94, Calcium 8.3 L Micro: Microbiology 06/26/23 08:30 Urine, Clean Catch Urine Culture - Preliminary Enterococcus faecalis 06/27/23 17:30 Nasal Secretion SARS-CoV-2 Antigen (Rapid) - Final
[2023-06-28 10:19] VITALS: BP 113/77; PULSE 81; RESP 16; TEMP 36.2; O2SAT 97
[2023-06-28] MEDS: levoFLOXacin IV 750 MG/150 ML BAG 100 MG IV (10:33)
[2023-06-28] MEDS: Meloxicam 15 MG Tablet PO (10:34)
[2023-06-28] MEDS: Pantoprazole Sodium 40 MG Tablet PO (10:35)
[2023-06-28] MEDS: Heparin Injection (Vial) 5,000 UNIT/ML VIAL 5000 UNIT SC ×2 (10:36→22:00)
--- NOTE | 2023-06-28 11:20 | PN.HOSP_ITS ---
Reason for Visit Reason for Visit: Diagnoses Elevated white blood cell count, unspecified (06/26/23) Tubulo-interstitial nephritis, not specified as acute or chronic (06/26/23) Presence of urogenital implants (06/26/23) Subjective Subjective Patient seen at bedside this morning. Dr. Crouch with urology was also present during our conversation. Patient was standing at the edge of the bed eating breakfast during our interview. Appeared very comfortable, conversing normally, no acute distress. Patient states he had another fever with significant sweating yesterday evening, but has not had any further fever since then. He feels much improved this morning compared to yesterday. Has eaten most of his breakfast and been tolerating p.o. intake well this morning. Denies any abdominal pain or flank pain this morning. Reports good urine output. No other acute concerns morning. Objective Data Objective Data Vital Signs: Vital Signs Temp Pulse Resp BP Pulse Ox O2 Del Method O2 Flow Rate 97.2 F L 81 16 113/77 97 Room Air 2 06/28/23 10:19 06/28/23 10:19 06/28/23 10:19 06/28/23 10:19 06/28/23 10:19 06/28/23 10:50 06/26/23 22:53 Oxygen Flow Rate (L/min) 2 Oxygen Delivery Method Room Air Weight: 86.545 kg Body Mass Index (BMI) 29.0 Intake & Output: Intake and Output for Last 24 Hours 06/26/23 06/27/23 06/28/23 23:59 23:59 23:59 Intake Total 2961.5 / 2961.5 4280.5 / 4580.5 1390.63 / 1390.63 Output Total 900 / 900 950 / 950 Balance 2061.5 / 2061.5 4280.5 / 3630.5 440.63 / 440.63 Lab / Micro Data 06/28/23 05:13 06/28/23 05:13 Labs: Laboratory Results - last 24 hr 06/26/23 08:25: Diff Path Review Reviewed 06/28/23 05:13: WBC 22.9 H, RBC 3.41 L, Hgb 10.5 L, Hct 33.0 L, MCV 96.8 H, MCH 30.8, MCHC 31.8 L, RDW Std Deviation 48.0 H, RDW Coeff of Lam 13.3, Plt Count 273, MPV 9.4, Immature Gran % (Auto) 1.400 H, Neut % (Auto) 66.2, Lymph % (Auto) 17.0 L, [place] % (Auto) 14.3 H, Eos % (Auto) 0.7, Baso % (Auto) 0.4, Absolute Neuts (auto) 15.1 H, Absolute Lymphs (auto) 3.89, Nucleated RBC % 0, Differential Comment SCANNED, Diff Path Review October foll, Sodium 141, Potassium 3.7, Chloride 112 H, Carbon Dioxide 24.0, Anion Gap 5, BUN 13, Creatinine 1.29, Estim Creat Clear Calc 61.09, Est GFR (MDRD) Af Amer 72, Est GFR (MDRD) Non-Af 59 L, BUN/Creatinine Ratio 10.1, Glucose 94, Calcium 8.3 L Micro: Microbiology 06/26/23 08:30 Urine, Clean Catch Urine Culture - Preliminary Enterococcus faecalis 06/27/23 17:30 Nasal Secretion SARS-CoV-2 Antigen (Rapid) - Final 06/26/23 08:30 Mucosa - Nose SARS-CoV-2, Influenza & RSV (PCR) - Final Physical Exam Const alert, oriented x3, no apparent distress, average body habitus, healthy appearing and well nourished General Appearance: cooperative and comfortable HEENT normocephalic, head/scalp atraumatic, hearing grossly normal bilaterally, nasal mucous membranes and turbinates normal and moist oral mucous membranes Eyes PERRL, EOMs intact bilaterally and conjunctivae normal Neck full ROM, no lymphadenopathy and supple Lymph Lymphatic: no lymphadenopathy noted Chest inspection of chest normal Resp normal respiratory effort, normal air movement, no use of accessory muscles and clear to auscultation bilaterally Cardio regular rate, regular rhythm, no murmurs and peripheral pulses 2+ throughout GI normal to inspection, nondistended, normoactive bowel sounds, soft to palpation, non-tender and non-distended Back/Spine normal ROM Extremity normal to inspection, full ROM and no pedal edema Skin no rashes or lesions noted Neuro no focal motor deficits and no sensory deficits noted Speech: speech normal Psych mental status grossly normal Assessment & Plan Assessment/Plan (1) Pyelonephritis of left kidney: (2) Status post placement of ureteral stent: PLAN: Plan Patient is a 67-year-old male who presented to [facility] ED on 06/26/2023 with fevers and chills and concern for recurrent UTI. 1. Sepsis without shock, pyelonephritis of left kidney secondary to Enterococcus faecalis UTI, recent history of small left nephrolithiasis s/p left ureteral stent placement Recent history of multiple hospitalizations for left-sided flank pain secondary to nephrolithiasis with recurrent UTI. S/p left ureteral stent placement with [facility] urology. Met sepsis criteria on admit with WBC count 31.1, fevers to 103F, sinus tachycardia with presumed urinary source of infection. UA infectious on admit. CT abdomen pelvis showed prominent left kidney with mild perinephric stranding, no left kidney stone noted, small nonobstructing stone in right kidney. ? Urology following. Urine culture positive for Enterococcus faecalis, sensitivities pending. Switched from IV Zosyn to IV Levaquin on 06/28. WBC count downtrending, afebrile and improving on 06/28. If remains stable, likely okay for discharge home on p.o. Levaquin on 06/29, course length to be de termined. Planning for outpatient follow-up with Dr. Crouch on 07/03 for left ureteral stent removal. 2. History of thyroid cancer s/p thyroidectomy with postoperative hypothyroidism ? Continue home Synthroid. DVT prophylaxis: Heparin subcu CODE STATUS: Full code, unverified Expected disposition: Home, 1 to 2 days Total clinical time spent by myself addressing the patient's medical issues, reviewing all the data, and collaborating with patient's care team: 35 minutes. Charges/Coding Visit Charges Inpatient E&M: 97051 Subs Hosp L2
[2023-06-28 15:30] VITALS: BP 115/80; PULSE 84; RESP 16; TEMP 36.6; O2SAT 98
[2023-06-28 21:20] VITALS: BP 128/78; PULSE 106; RESP 16; TEMP 37.2; O2SAT 98
[2023-06-29 03:30] VITALS: BP 121/79; PULSE 79; RESP 16; TEMP 36.8; O2SAT 97
[2023-06-29] MEDS: Levothyroxine 175 MCG Tablet 350 MCG PO (05:01)
[2023-06-29 06:17] LABS: Hematocrit 33.6 % (40-54); Mean Corp Hgb Conc 32.7 g/dL (32-36); Mean Corpuscular Hgb 31.5 pg (27.0-32.0); Mean Corpuscular Volume 96.3 fL (80-94); Mean Platelet Vol. 9.6 fl (6.2-12.0); Platelet Count 300 K/mm3 (150-450); RBC Distribution Width CV 13.6 % (11.6-14.6); RBC Distribution Width SD 48.3 fl (35.1-43.9); Red Blood Count 3.49 M/mm3 (4.6-6.2); White Blood Count 15.8 K/mm3 (4.4-11.0)
[2023-06-29 06:41] LABS: Anion Gap 5 (5-15); BUN 12 mg/dL (7-18); BUN/Creat Ratio 10.3 RATIO (10-20); Calcium,Total 8.3 mg/dL (8.5-10.1); Chloride 111 mmol/L (98-107); Creatinine, Serum 1.16 mg/dL (0.70-1.30); EST Glomerular Filtration Rate 67 mL/min (>60); Est Glom Filt Rate - Afr Amer 81 mL/min (>60); Estimated Creatinine Clearance 67.94 ml/min; Glucose 82 mg/dL (74-106); Potassium 3.5 mmol/L (3.5-5.1); Sodium Level 141 mmol/L (136-145)
[2023-06-29] MEDS: levoFLOXacin IV 750 MG/150 ML BAG 100 MG IV (09:48)
[2023-06-29] MEDS: Meloxicam 15 MG Tablet PO (09:49)
[2023-06-29] MEDS: Pantoprazole Sodium 40 MG Tablet PO (09:49)
--- NOTE | 2023-06-29 09:51 | DCINST_ITS ---
Discharge Instructions Diet Discharge Diet: No restrictions Activity Discharge Activity: No Restrictions Weight Bearing Status: Full weight bearing Follow Up Care Test Results: Test results from this visit will be discussed in further detail at your follow- up appointment, if applicable. Discharge Plan Admission Admit Date/Time: 06/26/23 10:08 Primary Reason for Your Visit: Pyelonephritis Attending Provider: Doroteo Ruiz Primary Care Provider: Lloyd Jameson Consulting Providers: Gareth Mcfarland Instructions Additional Instructions / Restrictions: Take 7 more days of antibiotics as noted below to complete a 10-day course total. Follow-up with urology in the office as scheduled. Discharge Orders/Prescriptions Prescriptions: New levofloxacin 750 mg tablet 750 mg PO DAILY Qty: 7 0RF Continued levothyroxine [Synthroid] 175 mcg tablet 175 mcg PO DAILY Rx Instructions: TAKE 1 TAB BY MOUTH ONCE DAILY FRIDAY-FRIDAY. TAKE 2 TABLETS ONCE DAILY ON FRIDAY Referrals / Follow Up: Lloyd Jameson MD [Primary Care Provider] - Disposition Disposition (needs filled in before D/C Order can be placed): Home, Self Care
--- NOTE | 2023-06-29 09:52 | PCM.DC.SUM ---
Providers Date of Admission: 06/26/23 Date of Discharge: 06/29/23 Primary Care Physician: Dr. Lloyd Jameson MD Reason For Visit: PYELONEPHRITIS Diagnosis Discharge Diagnosis (1) Pyelonephritis of left kidney: Status: Acute Code(s): N12 - Tubulo-interstitial nephritis, not specified as acute or chronic (2) Status post placement of ureteral stent: Status: Acute Code(s): Z96.0 - Presence of urogenital implants Medications at Discharge Home Medications levothyroxine 175 mcg tablet (Synthroid) 175 mcg PO DAILY THYROID 06/26/23 levofloxacin 750 mg tablet 750 mg PO DAILY #7 tabs 06/29/23 Hospital Course Operations None Procedures - (CT abdomen pelvis without contrast) Summary of Care Provided Minutes Spent on Discharge: 35 Hospital Course: Patient is a 67-year-old male who presented to [facility] ED on 06/26/2023 with fevers and chills and concern for recurrent UTI. Hospital course as noted below. Patient discharged home in stable condition on 06/29. 1. Sepsis without shock, pyelonephritis of left kidney secondary to Enterococcus faecalis UTI, recent history of small left nephrolithiasis s/p left ureteral stent placement Recent history of multiple hospitalizations for left-sided flank pain secondary to nephrolithiasis with recurrent UTI. S/p left ureteral stent placement with [facility] urology. Met sepsis criteria on admit with WBC count 31.1, fevers to 103F, sinus tachycardia with presumed urinary source of infection. UA infectious on admit. CT abdomen pelvis showed prominent left kidney with mild perinephric stranding, no left kidney stone noted, small nonobstructing stone in right kidney. Urine culture positive for Enterococcus faecalis sensitive to Levaquin. ? Urology followed. Initially treated with IV Zosyn, transition to IV Levaquin on 06/28. Discharged on p.o. Levaquin with plan to complete 10-day course total, stop date 07/06. Plan is for outpatient follow-up with Dr. Crouch on 07/03 for left ureteral stent removal. 2. History of thyroid cancer s/p thyroidectomy with postoperative hypothyroidism ? Continue home Synthroid. Total clinical time spent by myself addressing the patient's discharge needs: 35 minutes. Physical Exam Const alert, oriented x3, no apparent distress, average body habitus, healthy appearing and well nourished General Appearance: cooperative and comfortable HEENT normocephalic, head/scalp atraumatic, hearing grossly normal bilaterally, nasal mucous membranes and turbinates normal and moist oral mucous membranes Eyes PERRL, EOMs intact bilaterally and conjunctivae normal Neck full ROM, no lymphadenopathy and supple Lymph Lymphatic: no lymphadenopathy noted Chest inspection of chest normal Resp normal respiratory effort, normal air movement, no use of accessory muscles and clear to auscultation bilaterally Cardio regular rate, regular rhythm, no murmurs and peripheral pulses 2+ throughout GI normal to inspection, nondistended, normoactive bowel sounds, soft to palpation, non-tender and non-distended Back/Spine normal ROM Extremity normal to inspection, full ROM and no pedal edema Skin no rashes or lesions noted Neuro no focal motor deficits and no sensory deficits noted Speech: speech normal Psych mental status grossly normal Weight / BMI Weight Weight: 86.545 kg Body Mass Index (BMI) 29.0 ABG / Lab / Microbiology Data 06/29/23 05:00 06/29/23 05:00 Laboratory: Laboratory Results - last 24 hr 06/29/23 05:00: WBC 15.8 H, RBC 3.49 L, Hgb 11.0 L, Hct 33.6 L, MCV 96.3 H, MCH 31.5, MCHC 32.7, RDW Std Deviation 48.3 H, RDW Coeff of Lam 13.6, Plt Count 300, MPV 9.6, Sodium 141, Potassium 3.5, Chloride 111 H, Carbon Dioxide 25.0, Anion Gap 5, BUN 12, Creatinine 1.16, Estim Creat Clear Calc 67.94, Est GFR (MDRD) Af Amer 81, Est GFR (MDRD) Non-Af 67, BUN/Creatinine Ratio 10.3, Glucose 82, Calcium 8.3 L Microbiology: Microbiology 06/26/23 08:30 Urine, Clean Catch Urine Culture - Final Enterococcus faecalis 06/26/23 08:34 Blood Culture (Wb) - Anticubital Left Blood Culture - Preliminary No growth in 48 hours. 06/26/23 08:25 Blood Culture (Wb) - Anticubital Right Blood Culture - Preliminary No growth in 48 hours. 06/27/23 17:30 Nasal Secretion SARS-CoV-2 Antigen (Rapid) - Final 06/26/23 08:30 Mucosa - Nose SARS-CoV-2, Influenza & RSV (PCR) - Final D/C Instructions Discharge Diet: No restrictions Weight Bearing Status: Full weight bearing Meaningful Use Info Meaningful Use Diagnoses (Choose all that apply): None applicable Discharge Plan Admission Admit Date/Time: 06/26/23 10:08 Primary Reason for Your Visit: Pyelonephritis Attending Provider: Doroteo Ruiz Primary Care Provider: Lloyd Jameson Consulting Providers: Gareth Mcfarland Instructions Additional Instructions / Restrictions: Take 7 more days of antibiotics as noted below to complete a 10-day course total. Follow-up with urology in the office as scheduled. Discharge Orders/Prescriptions Prescriptions: New levofloxacin 750 mg tablet 750 mg PO DAILY Qty: 7 0RF Continued levothyroxine [Synthroid] 175 mcg tablet 175 mcg PO DAILY Rx Instructions: TAKE 1 TAB BY MOUTH ONCE DAILY FRIDAY-FRIDAY. TAKE 2 TABLETS ONCE DAILY ON FRIDAY Referrals / Follow Up: Lloyd Jameson MD [Primary Care Provider] - Disposition Disposition (needs filled in before D/C Order can be placed): Home, Self Care Charges/Coding Visit Charges Inpatient E&M: 83565 Disch Hosp >30min
[2023-06-29 09:56] VITALS: BP 134/90; PULSE 90; RESP 16; TEMP 36.7; O2SAT 97
[2023-06-30 14:18] LABS: Pathologist Review Reviewed
[2023-06-30 14:26] LABS: Pathologist Review Reviewed
== END 2023-06-29 11:06 | disposition home or self-care (01) | DRG 698 ==
LOC: ED 08:37 → MS3 10:20
PROVIDERS: Admitting Provider Internal Medicine; Emergency Provider Emergency Medicine; PCP Family Medicine; Visit Provider Hospitalist
DX: T83.592A Infection and inflammatory reaction due to indwelling ureteral stent, initial encounter (principal); A41.81 Sepsis due to Enterococcus; N10 Acute pyelonephritis; E89.0 Postprocedural hypothyroidism; E78.00 Pure hypercholesterolemia, unspecified; Y73.2 Prosthetic and other implants, materials and accessory gastroenterology and urology devices associated with adverse incidents; N20.0 Calculus of kidney; Z90.81 Acquired absence of spleen; Z79.890 Hormone replacement therapy; Z11.52 Encounter for screening for COVID-19
CPT/HCPCS: 36415; 74022; 74176; 80048; 80053; 81001; 83605; 84145; 85025; 85027; 87040; 87077; 87086; 87088; 87186; 87631; 87811; 99284; J7030; J7050; A4216; J2405